=== PATIENT | female | born 1965 | race African-American/Black ===

== ENCOUNTER → 2021-11-20 | Outpatient (CLI) | payer MEDICAID | END | disposition home or self-care (01) | LOC: LAB 08:38 | PROVIDERS: ATTEND Specialist | DX: Z20.822 Contact with and (suspected) exposure to COVID-19 (principal) | CPT/HCPCS: 87426 ==

== ENCOUNTER → 2021-11-21 | Day surgery (SDC) | payer MEDICAID ==
[~2021-11-21] VITALS: Ht 153.7 cm; Wt 76.2 kg
[~2021-11-21] MED LIST: BACITRACIN 15GM TUBE TOP ONE; BUPIVACAINE HCL/PF 0.5% (5MG/ML) 10ML ONE; CEFAZOLIN SODIUM 1000MG/VIAL ONE; DEXAMETHASONE 4MG/ML 1ML VIAL ONE; HYDROMORPHONE HCL/PF 2MG/ML (OR) ONE; LACTATED RINGERS 1,000 ML IV SCH; LIDOCAINE HCL 1% 20ML VIAL (Pyxis) INJ ONE; SKIN ADHESIVE 0.7 GM EA TOP ONE
[2021-11-21 06:29] LABS: CLARITY URINE CLEAR (CLEAR); COLOR URINE YELLOW (YELLOW); KETONES URINE NEGATIVE (NEGATIVE); LEUKOCYTE ESTERASE URINE NEGATIVE (NEGATIVE); NITRITE URINE NEGATIVE (NEGATIVE); OCCULT BLOOD URINE 1+ (NEGATIVE); PROTEIN URINE NEGATIVE (NEGATIVE); SPECIFIC GRAVITY URINE 1.019 (1.005-1.030)
== END | disposition home or self-care (01) ==
LOC: OR 05:40
PROVIDERS: ATTEND Specialist
DX: L72.3 Sebaceous cyst (principal); M19.90 Unspecified osteoarthritis, unspecified site; Z87.891 Personal history of nicotine dependence; Z79.899 Other long term (current) drug therapy; Z98.890 Other specified postprocedural states; Z91.040 Latex allergy status
CPT/HCPCS: 11423; 81003; 88304; J0690; J1100; J1170; J3490